=== PATIENT | male | born 1995 | race American Indian/Alaskan Native ===

== ENCOUNTER 2017-05-31 04:22 | Emergency (ER) | payer SELFPAY ==
[2017-05-31 04:50] VITALS: BP 132/81
[2017-05-31] MEDS ORDERED: MOTRIN PO ONE (04:59)
--- NOTE | 2017-05-31 09:36 | XRay Report ---
RIGHT HAND, 2 VIEWS History: Injury. Findings: Subtle nondisplaced fracture lines are identified at the base of the fifth metacarpal. This appears to be a comminuted, nondisplaced fracture and consistent with the reverse Lawrence's fracture. There is no significant displacement or calcified callus identified at this time. The remaining bony structures are intact. No joint pathology is detected. Mild soft tissue swelling. Impression: Reverse Lawrence's fracture. Consultation with orthopedics is recommended. This may require surgical intervention.
== END 2017-05-31 05:30 | disposition left against medical advice (07) ==
LOC: ED 04:22
DX: M25.539 Pain in unspecified wrist (principal); Z53.21 Procedure and treatment not carried out due to patient leaving prior to being seen by health care provider